=== PATIENT | female | born 1960 | race Caucasian/White ===

== ENCOUNTER → 2017-07-23 13:25 | Outpatient (CLI) | payer MEDICARE, MEDICAID, SELFPAY ==
--- NOTE | 2017-07-23 13:34 | XR_ITS ---
XR lumbar spine min 4V COMPARISON: None HISTORY: Low back pain TECHNIQUE: AP lateral and oblique views and spot view lumbosacral junction FINDINGS: There is normal curvature and alignment. All lumbar vertebrae appear intact. There is moderate disc space narrowing at L3-4 level with anterior and posterior ossific spurring noted. There is mild disc space narrowing at L4-5 level. Remaining disc spaces appear normal. There is no pars defect. There are moderate hypertrophic facet changes at the L4-5 and L5-S1 levels. There is mild arterial sclerotic calcification of the abdominal aorta but there is no aneurysm. IMPRESSION: Moderate degenerative disc disease L3-4 and L4-5 along with hypertrophic facet changes L4-5 and L5-S1
== END ==
PROVIDERS: PCP Family Medicine; Visit Provider Family Medicine
DX: M54.5 Low back pain (principal)
CPT/HCPCS: 72110

== ENCOUNTER → 2017-07-31 11:18 | Outpatient (CLI) | payer MEDICARE, MEDICAID, SELFPAY ==
--- NOTE | 2017-07-31 11:28 | XR_ITS ---
XR chest 2V COMPARISON: PA and lateral chest 06/12/2016 HISTORY: Cough, COPD TECHNIQUE: PA and lateral chest FINDINGS: There is diffuse ill-defined airspace disease in right perihilar region, right middle lobe and right lower lobe and likely anterior segment right upper lobe. The left lung field is clear. There is borderline cardiomegaly. There is no pleural fluid. IMPRESSION: Prominent diffuse ill-defined pneumonic infiltrates involving most of the right lung sparing the periphery and suggest follow-up films to assess clearing and it was not significant interval improvement in a follow-up CT scan chest may be necessary.
== END ==
PROVIDERS: PCP Family Medicine; Visit Provider Nurse Practitioner
DX: J44.1 Chronic obstructive pulmonary disease with (acute) exacerbation (principal)
CPT/HCPCS: 71046

== ENCOUNTER → 2017-08-07 09:14 | Outpatient (CLI) | payer MEDICARE, MEDICAID, SELFPAY ==
--- NOTE | 2017-08-07 09:17 | MM_ITS ---
MM Dig screening mamm BI w/CAD CAD Screening COMPARISON: Digital mammograms 02/14/2014 and additional views left breast the 2013 INDICATION: Is a history of breast cancer patient's sister diagnosed after menopause TECHNIQUE: Standard CC and MLO images were obtained. R2 CAD reviewed. FINDINGS: Scattered fibroglandular densities are seen in both breasts. Again noted are stable asymmetric densities left breast. There is faint arterial calcification in each breast and there are a few scattered benign-appearing calcifications in each breast. There is no suspicious lesion and there are no suspicious microcalcifications. IMPRESSION: Fibrofatty parenchyma no suspicious lesion seen. BI-RADS Category: 2 Benign Finding(s) RECOMMENDED FOLLOW-UP: 1YR - 1 YEAR FOLLOW-UP (A letter has been sent to the patient regarding results of the study.)
== END ==
PROVIDERS: Family Provider Family Medicine; PCP Family Medicine; Visit Provider Family Medicine
DX: Z12.31 Encounter for screening mammogram for malignant neoplasm of breast (principal)
CPT/HCPCS: 77067

== ENCOUNTER → 2017-09-02 16:24 | Outpatient (CLI) | payer MEDICARE, MEDICAID, SELFPAY ==
--- NOTE | 2017-09-02 16:29 | XR_ITS ---
XR chest 2V HISTORY: Persistent cough ITS.REASON: F/U PNEUMONIA; PERSISTENT COUGH ORDERING PHYSICIAN: Pool Du MD PATIENT AGE: 56 years COMPARISON: 07/31/2017 FINDINGS: There is mild cardiomegaly without failure. Pneumonia is once again noted in the right perihilar region and right upper lobe is slightly improved. Moderate residual infiltrate persists. IMPRESSION: Persistent but slightly improved right-sided pneumonia. Recommend following clinically. Chest CT with contrast may be of further value in this patient chronic infiltrates
== END ==
PROVIDERS: PCP Family Medicine; Visit Provider Family Medicine
DX: J18.9 Pneumonia, unspecified organism (principal); R05 Cough
CPT/HCPCS: 71046

== ENCOUNTER → 2017-09-30 10:33 | Outpatient (CLI) | payer MEDICARE, MEDICAID, SELFPAY ==
[2017-09-30 11:12] LABS: Blood Urea Nitrogen 25 mg/dL (7-18); Creatinine,Serum 0.85 mg/dL (0.55-1.02); Estimated Glomerular Filt Rate 69 ml/min (>60); GFR (African American) 83 ML/MIN (>60)
--- NOTE | 2017-09-30 14:02 | CT_ITS ---
CT chest wo/w con HISTORY: ITS.REASON: RECURRENT PNEUMONIA ORDERING PHYSICIAN: Pool Du MD PATIENT AGE: 56 years COMPARISON: 06/27/2015 Technique: Axial images obtained without and with contrast. 75 mL Isovue-[id number] utilized.. Sagittal and coronal reformatted images are also generated and reviewed. All CT scans at the facility use one or more dose reduction, viz: automated exposure control; ma/kV adjustment per patient size (including targeted exams where dose is matched to indication; i.e. head); or iterative reconstruction technique. FINDINGS: There are scattered small nodes within the mediastinum. No mediastinal or hilar mass. Artery calcifications are present. No evidence of aortic aneurysm, dissection, or central pulmonary embolus. There is a spiculated 2.2 x 1.7 x 1.2 cm nodule within the posterior segment of the right upper lobe containing a small central cavitation. This has developed since the previous exam and is suspicious for malignancy. Chronic changes are present in the right upper lobe with coarsening of the bronchovascular markings. There are some patchy density present in the right middle lobe some bronchial thickening and volume loss. There is calcified granuloma in the left lower lobe with some minimal atelectatic changes in the left lung base. Upper abdominal images show cholelithiasis. There are degenerative changes in the thoracic and lumbar spine. IMPRESSION: 1. Spiculated 2.2 x 1.7 x 1.2 cm nodule within the right upper lobe posteriorly a small central cavitation. This could be inflammatory/infectious in nature however, neoplasm is also considered. Pulmonology consult with bronchoscopy suggested for further evaluation. 2. Chronic changes with chronic postinflammatory changes in the right upper lobe and right middle lobe.
== END ==
PROVIDERS: Family Provider Family Medicine; PCP Family Medicine; Visit Provider Family Medicine
DX: J18.9 Pneumonia, unspecified organism (principal)
CPT/HCPCS: 36415; 71270; 82565; 84520; Q9967

== ENCOUNTER → 2017-11-10 06:55 | Outpatient (CLI) | payer MEDICARE, MEDICAID, SELFPAY ==
--- NOTE | 2017-11-10 06:57 | NM_ITS ---
History and Indications: No obvious, shortness of breath, preop cardiovascular risk assessment Procedure: Patient received a 0.4 mg of Lexiscan, resting heart rate was 70 bpm, resting blood pressure 126/89, with Lexiscan maximum heart rate achieved was 1 minute which is less than 85% of the maximum predicted heart rate and a blood pressure was 127/70. With Lexiscan no symptoms recorded. Electrocardiogram: Resting electrocardiogram showed sinus rhythm, with Lexiscan there is less than 1.[address] segment depression noted from the baseline EKG. The EKG portion of the Lexiscan Myoview is nondiagnostic. Cardiac stress and resting SPECT images: Cardiac stress and rest SPECT images were obtained using technetium 99 Myoview 32.1 mCi at stress and 9.6 mCi at rest. Gated SPECT further analysis of segmental wall motion and calculation of the ejection fraction also done. Cardiac stress and rest SPECT images show a mild fixed defect in the anterior wall with normal contractility in the gated SPECT is likely secondary to soft tissue attenuation, no reversible ischemia seen. Computer derived ejection fraction is over 65% with no obvious regional wall motion abnormality, right ventricle is normal size and contractility. Conclusion: 1. The EKG portion of the Lexiscan Myoview is nondiagnostic. 2. No obvious scintigraphic evidence of reversible ischemia seen, computer derived ejection fraction is over 65% with no obvious regional wall motion abnormality, right ventricle is normal size and contractility.
--- NOTE | 2017-11-10 06:57 | CA_ITS ---
PROCEDURE: 2-D M-mode and color Doppler study INDICATIONS FOR THE TEST: Chest pain COPDX Heart Murmur Tobacco SmokingEX Palpitations Fatigue Syncope EdemaX HypertensionXDiabetes Mellitus Rheumatic Fever SOBXDOEXObesityXHyperlipidemiaX Family History HD Additional History PAD,CVA TDS OBESITY/COPD PATIENT INFORMATION HEIGHT: 59 WEIGHT:257 GENDER: Female B/P:150/97 2-D/M-MODE INTERPRETATION: 2-D MEASUREMENTS OBSERVED VALUES IN CMS Right Ventricular Dimension (RVDd) 3.9 Interventricular Septum (Thickness)(IVsd) 1.2 Left Ventricular Internal Dimensions(LVIDd) 4.6 Left Ventricular Posterior Wall (Thickness)(LVPWd) 1.2 Aortic Root 2.8 Aortic Cusp Separation 1.7 Left Atrial Dimensions (LAD) 3.7 2D 1. Left atrium is mildly enlarged, left ventricle is normal size, mild concentric left ventricular hypertrophy, visually estimated ejection fraction 55% with no obvious regional wall motion abnormality, endocardial surfaces are poorly visualized. 2. The right atrium and right ventricle are mildly enlarged with normal contractility. 3. The aortic valve is minimally thickened and fibrosed. 4. The mitral and tricuspid valve leaflets are minimally thickened. 5. The pulmonic valve is poorly visualized. 6. No significant pericardial effusion noted. DOPPLER INTERROGATION: Doppler interrogation of the aortic, mitral and tricuspid valvular presence of mild mitral and tricuspid regurgitation, tricuspid and jet velocity is insufficient for calculation of the right ventricular systolic pressure, diastolic parameters are inconclusive. CONCLUSION: 1. Mildly enlarged left atrium, normal left ventricular size, mild concentric left ventricular hypertrophy, visually estimated ejection fraction 55% with no obvious regional wall motion abnormality, diastolic parameters are inconclusive. 2. Mildly enlarged right ventricle with normal contractility. 3. Mild mitral and tricuspid regurgitation 4. No significant pericardial effusion noted 5. Technically difficult study because of the patient's factor and poor acoustic windows.
--- NOTE | 2017-11-10 07:58 | HMH.ITSHM ---
BENZONATATE AMITRIPTYLINE LYRICA METOLAZONE FAMOTIDINE ROPINIROLE LORATADINE ALLOPURINOL WARFARIN POTASSIUM ASA CLOPIDOGREL TRAMADOL MONTELUKAST DULOXETINE FUROSEMIDE
== END ==
PROVIDERS: Family Provider Family Medicine; PCP Family Medicine; Visit Provider Internal Medicine
DX: Z01.810 Encounter for preprocedural cardiovascular examination (principal); Z86.73 Personal history of transient ischemic attack (TIA), and cerebral infarction without residual deficits; R06.00 Dyspnea, unspecified; E78.5 Hyperlipidemia, unspecified; I73.9 Peripheral vascular disease, unspecified; I10 Essential (primary) hypertension
CPT/HCPCS: 78452; 93017; 93306; A9502; J2785